=== PATIENT | female | born 1940 | race Asian ===

== ENCOUNTER → 2017-07-16 11:47 | Outpatient (CLI) | payer MEDICARE, OTHER, SELFPAY ==
[2017-07-16 14:21] LABS: Free T3, Triiodothyronine Free 4.33 pg/mL (2.77-5.27); Free T4, Direct Thyroxine 0.77 ng/dL (0.78-2.19)
[2017-07-16 14:34] LABS: Thyroid Stimulating Hormone 3.95 uIU/mL (0.47-4.68)
== END ==
PROVIDERS: PCP Physician Assistant; Visit Provider Family Medicine
DX: E03.9 Hypothyroidism, unspecified (principal)
CPT/HCPCS: 36415; 84439; 84443; 84481

== ENCOUNTER → 2017-09-23 11:13 | Outpatient (CLI) | payer MEDICARE, OTHER, SELFPAY ==
[2017-09-23 12:18] LABS: Add Manual Diff / Slide Review NO; Basophils Percent Auto 0.7 % (0-2); Eosinophils Percent Auto 1.7 % (2-4); Hematocrit 38.8 % (36-46); Hemoglobin 13.3 g/dL (12.0-16.0); Lymphocytes Percent Auto 32.2 % (25-40); Mean Corpuscular HGB Conc 34.2 % (30-36); Mean Corpuscular Hemoglobin 32.4 PG (26-34); Mean Corpuscular Volume 94.7 fL (80-100); Monocytes Percent Auto 6.5 % (3-14); Neutrophils Absolute Auto 3300 /uL (3000-5900); Neutrophils Percent Auto 58.9 % (50-75); Platelet Count 214 X10^3/uL (150-400); Red Cell Distribution Width 12.8 % (11.6-14.8); White Blood Cell Count 5.6 X10^3/uL (4.5-11.0)
[2017-09-23 12:21] LABS: Alanine Aminotransferase 29 IU/L (9-52); Albumin 4.2 g/dL (3.5-5.0); Albumin Globulin Ratio 1.6 (1.0-2.8); Alkaline Phosphatase 52 U/L (38-126); Aspartate Aminotransferase 29 IU/L (14-36); Bilirubin Total 0.3 mg/dL (0.2-1.3); Blood Urea Nitrogen 13 mg/dL (7-17); Carbon Dioxide 31 mmol/L (22-32); Chloride 103 mmol/L (98-107); Estimated Glomerular Filt Rate > 60.0 mL/min (>60); Globulin 2.6 g/dL (1.7-4.1); Glucose 112 mg/dL (80-110); HEMOLYSIS < 15 (0-50); Potassium 4.5 mmol/L (3.4-5.1); Sodium 141 mmol/L (137-145); Total Protein 6.8 g/dL (6.3-8.2)
[2017-09-23 17:30] LABS: Free T3, Triiodothyronine Free 3.54 pg/mL (2.77-5.27); Free T4, Direct Thyroxine 1.69 ng/dL (0.78-2.19)
[2017-09-23 17:43] LABS: Thyroid Stimulating Hormone 0.06 uIU/mL (0.47-4.68)
== END ==
PROVIDERS: PCP Physician Assistant; Visit Provider Physician Assistant
DX: R53.83 Other fatigue (principal); E03.9 Hypothyroidism, unspecified
CPT/HCPCS: 36415; 80053; 84439; 84443; 84481; 85025

== ENCOUNTER → 2017-11-03 09:37 | Outpatient (CLI) | payer MEDICARE, OTHER, SELFPAY ==
[2017-11-03 10:56] LABS: Thyroid Stimulating Hormone 2.73 uIU/mL (0.47-4.68)
== END ==
PROVIDERS: PCP Physician Assistant; Visit Provider Physician Assistant
DX: E03.9 Hypothyroidism, unspecified (principal)
CPT/HCPCS: 36415; 84443

== ENCOUNTER 2018-03-23 08:38 | Day surgery (SDC) | payer MEDICARE, OTHER, SELFPAY ==
[2018-03-23] VITALS (11 sets, daily range): BP systolic 108–163; BP diastolic 54–87; PULSE 60–76; RESP 4–20; TEMP 36.2–36.6; O2SAT 96–100; BMI 19.9
--- NOTE | 2018-03-23 | PATH_ITS ---
[facility] Accession Number: [id number] . 01 Material submitted: . SUBMUCOSAL MASS AT 15CM . 02 Diagnosis: Colon, Submucosal Mass at 15 cm, Biopsies: Colonic mucosa with no diagnostic abnormality. Negative for serrated lesion, dysplasia or malignancy. MRV/03/24/2018 . 02 Comment: The endoscopic impression of a submucosal mass is noted; however, there is no submucosal tissue present for evaluation in these mucosal biopsies. . 02 Electronically signed: . El Emerson MD, PhD, Pathologist NPI- [id number] . 01 Gross description: . Received one formalin-filled container labeled with the patient's name and labeled submucosal mass at 15 cm. The specimen consists of two 0.1-0.4 cm portions of tissue, entirely submitted in one cassette. ([id number]) /FRR . 02 Pathologist provided ICD-10: D12.6 . 02 CPT . 864195 Performed at: 01 [facility] [address], [place], [place] [id number] MD Yuri Fulton MD Phone: [phone] Performed at: 02 [facility] [address] [place], [place] [id number] MD Magaly Morocho MD Phone: [phone]
[2018-03-23] MEDS: SODIUM CHLORIDE 0.9% 1,000 ML 200 ML IV ×2 (09:12→13:01)
--- NOTE | 2018-03-23 11:18 | PM.HP.1 ---
History of Present Illness Date Patient Seen: 03/23/18 Time Patient Seen: 11:10 Chief complaint: [id number] Colonscopy Narrative: Patient is a woman here for screening colonoscopy. Last exam was 5 years ago. She has had numerous exams with multiple polyps removed in the past. Patient History Medical History Hypothyroidism (Chronic 08/12/10) Primary central sleep apnea (Chronic 04/07/12) Mitral valve prolapse (Chronic) household members: none Smoking Status: Never smoker second hand exposure: Yes (as a child. Both of my parents smoked) alcohol intake: current (red wine maybe twice a month.) substance use type: does not use Family & Social History Social History: household members none Tobacco & Substance use: Smoking Status Never smoker alcohol intake current Meds Home Medications Medication Instructions Recorded Confirmed Type AMYLASE/LIPASE/PROTEASE 1 ctb PO BID #0 04/07/12 01/19/18 History (#DIGESTIVE ENZYMES 19 MG-27.5 MG-5 MG) levalbuterol tartrate [Xopenex HFA] 2 puff INH Q6H PRN #1 inh 05/29/17 01/19/18 Rx B infantis-B longum-L acid-L cap PO BEDTIME cap 08/20/17 01/19/18 History rhamnosus 2 billion cell sprinkle capsule [CO-Q-10] 100 mg PO QDAY #0 08/20/17 01/19/18 History fluticasone 220 mcg/actuation HFA 1 puff INHALATION BID PRN inh 08/20/17 01/19/18 History aerosol inhaler sffemzriizxe-okofofpe-cafuny tablet 1 tab PO DAILY 08/20/17 01/19/18 History Magnesium Citrate See Label Instructions .ROUTE 11/04/17 01/19/18 History .COMPLEX [place] 3 See Label Instructions .ROUTE 11/04/17 01/19/18 History .COMPLEX Turmeric See Label Instructions .ROUTE 11/04/17 01/19/18 History .COMPLEX estradiol 0.01% (0.1 mg/gram) See Label Instructions VAG QWEEK 11/04/17 01/19/18 Rx vaginal cream #42.5 gram levothyroxine 50 mcg tablet 50 mcg PO DAILY #90 tab 11/04/17 03/23/18 Rx varicella-zoster glycoE vacc-AS01B 50 mcg IM ONCE #1 each 11/04/17 01/19/18 Rx adj(PF) 50 mcg/0.5 mL IM susp, kit tretinoin 0.05 % topical cream 0.05 % TOPICAL HS #60 gm 01/19/18 Rx Allergies Allergy/AdvReac Type Severity Reaction Status Date / Time morphine [MORPHINE] Allergy Severe HIVES AND Verified 03/23/18 09:10 ITCHING INTERNALLY povidone-iodine Allergy Severe RASH, Verified 03/23/18 09:10 [POVIDONE-IODINE] SWELLING shellfish derived Allergy Severe (ONLY Verified 03/23/18 09:10 [SHELLFISH DERIVED] OYSTERS/SCALLOPS/CLAMS) ITCHING,HIVES,SALIVATING,VOMIT zolpidem [ZOLPIDEM] Allergy Severe EXTREME Verified 03/23/18 09:10 PRUITIS montelukast [MONTELUKAST] AdvReac Severe NIGHTMARES Verified 03/23/18 09:10 AND TACHYCARDIA NSAIDS (Non-Steroidal AdvReac Severe Elevation Verified 03/23/18 09:10 Anti-Inflamma of [NSAIDS (NON-STEROIDAL systolic BP ANTI-INFLAMMA] fexofenadine [FEXOFENADINE] AdvReac Intermediate (THALIA) Verified 03/23/18 09:10 MADE ME HYPER. 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 Lungs are clear no rales rhonchi heart regular rate and rhythm. no murmur or gallop. abdomen is soft nontender without mass. Alert and oriented x3. Assessment & Plan Plan: Assessment/Plan Narrative: Screening colonoscopy. I have discussed the procedure and the rationale with the patient including risks of bleeding, perforation which would necessitate a major operation, failure to find remove all lesions and the potential to tattoo. They appeared to understand and wished to proceed.
--- NOTE | 2018-03-23 11:20 | PM.PREOP ---
Pre-operative Note Interval Note History & Physical reviewed/Exam performed by Physician: Yes Changes to H&P: No ASA Class (for procedural sedation): II
[2018-03-23] MEDS: ONDANSETRON 4 MG/2 ML INJ IV ×2 (11:28→12:43)
[2018-03-23] MEDS: SCOPOLAMINE 1 PATCH TOP (11:28)
[2018-03-23] MEDS: fentaNYL 250 MCG/5 ML INJ IV (11:29)
[2018-03-23] MEDS: MIDAZOLAM 5 MG/5 ML VIAL IV (11:29)
--- NOTE | 2018-03-23 12:10 | PM.OP.ENDO ---
Operative Date/Time/Diagnoses Date of procedure: 03/23/18 Time of procedure: 12:10 Pre-op diagnosis: Screening. History of polyps. Last exam 5 years ago. Post-op diagnosis: same Procedure & Clinicians Study performed: Colonoscopy Same procedure as scheduled: Yes Indications: Screening Surgeon: Amandeep Bustillo Procedure Notes SCOAP/Timeout: Performed Procedure in detail: The patient was placed in the left lateral decubitus position and underwent IV sedation directed by the surgeon consisting of fentanyl and Versed. Digital exam was unremarkable. The scope was inserted and advanced through the rectum into the sigmoid, descending, transverse, and ascending colon. Patient was noted to have diverticulosis.. The cecum was reached identified by the ileocecal valve and the appendiceal opening. The scope was gradually brought out. No Polyps were found. There was a submucosal mass noted at 15 cm from the anal verge. This had the appearance and biopsy characteristics of a lipoma. Once I removed the surface mucosa there was obvious fat underneath it. The scope ultimately was retroflexed in the rectum. The appearance was normal. The scope was removed and the patient tolerated the procedure well. Good prep Scope withdrawal time: 8.75 min Sedation minutes: 21 Findings: diverticulosis and other findings (Submucosal mass that appeared to be a lipoma in the rectum) Specimen(s): other (Submucosal mass 15 cm) Complications: none Recommendations: Colonscopy in 5 years Follow up: as needed Disposition: PACU
[2018-03-23] MEDS: METOCLOPRAMIDE 10 MG/2 ML INJ IV (14:40)
== END 2018-03-23 15:21 | disposition home or self-care (01) ==
LOC: ENDO 08:40
PROVIDERS: PCP Physician Assistant; Visit Provider Specialist
PROC: 0DJD8ZZ Inspection of Lower Intestinal Tract, Via Natural or Artificial Opening Endoscopic (ICD-10-PCS; CPT 45378; principal; 2018-03-23 10:45)
DX: Z86.010 Personal history of colon polyps (principal); K57.30 Diverticulosis of large intestine without perforation or abscess without bleeding; D12.6 Benign neoplasm of colon, unspecified; E03.9 Hypothyroidism, unspecified; G47.31 Primary central sleep apnea; I34.1 Nonrheumatic mitral (valve) prolapse
CPT/HCPCS: 45380; 88305; 99152; J2250; J2405; J2765; J3010

== ENCOUNTER → 2018-10-27 10:23 | Outpatient (CLI) | payer MEDICARE, OTHER, SELFPAY ==
[2018-10-27 11:39] LABS: Thyroid Stimulating Hormone 1.98 uIU/mL (0.47-4.68)
== END ==
PROVIDERS: PCP Physician Assistant; Visit Provider Physician Assistant
DX: E03.9 Hypothyroidism, unspecified (principal)
CPT/HCPCS: 36415; 84443

== ENCOUNTER → 2019-04-09 08:58 | Outpatient (CLI) | payer MEDICARE, OTHER, SELFPAY ==
--- NOTE | 2019-04-09 09:05 | DI.MG.S_ITS ---
BILATERAL DIGITAL SCREENING MAMMOGRAM 3D/2D WITH CAD: 04/09/2019 CLINICAL: Routine screening. Personal history of left breast cancer. Family history of breast cancer. Comparison is made to exams dated: 01/28/2018 mammogram, 01/05/2017 mammogram, and 01/08/2016 mammogram - [facility]. The tissue of both breasts is extremely dense, which lowers the sensitivity of mammography. Current study was also evaluated with a Computer Aided Detection (CAD) system. There are benign calcifications in both breasts. There also are benign post operative findings in the left breast. No significant masses, calcifications, or other findings are seen in either breast. There has been no significant interval change. IMPRESSION: There is no mammographic evidence of malignancy. A 1 year screening mammogram is recommended. This exam was interpreted at Station ID: [id number]. NOTE: For mammograms, a report in lay terms will be sent to the patient. Approximately 15% of breast malignancies will not be visualized mammographically. In the management of a palpable breast mass, a negative mammogram must not discourage biopsy of a clinically suspicious lesion. Electronically Signed By: Wellington pimentel/gisel:04/11/2019 08:10:32 letter sent: Normal Exam ACR BI-RADS Category 2: Benign Finding(s) 3342F
[2019-04-09 10:03] LABS: Add Manual Diff / Slide Review NO; Basophils Absolute Auto 0 /uL (0-100); Basophils Percent Auto 0.5 % (0-2); Eosinophils Absolute Auto 0 /uL (0-450); Eosinophils Percent Auto 0.4 % (2-4); Hematocrit 42.6 % (36-46); Hemoglobin 14.5 g/dL (12.0-16.0); Lymphocytes Absolute Auto 1500 /uL (1100-4500); Mean Corpuscular HGB Conc 34.1 % (30-36); Mean Corpuscular Hemoglobin 32.5 PG (26-34); Mean Corpuscular Volume 95.3 fL (80-100); Monocytes Absolute Auto 300 /uL (0-900); Monocytes Percent Auto 4.1 % (3-14); Neutrophils Absolute Auto 4800 /uL (1500-7000); Platelet Count 245 X10^3/uL (150-400); Red Blood Cell Count 4.47 X10^6/uL (4.0-5.2); Red Cell Distribution Width 12.7 % (11.6-14.8); White Blood Cell Count 6.7 X10^3/uL (4.5-11.0)
[2019-04-09 10:19] LABS: Alanine Aminotransferase 22 IU/L (<35); Albumin Globulin Ratio 1.5 (1.0-2.8); Alkaline Phosphatase 61 U/L (38-126); Aspartate Aminotransferase 31 IU/L (14-36); Bilirubin Total 0.6 mg/dL (0.2-1.3); Blood Urea Nitrogen 18 mg/dL (7-17); Carbon Dioxide 27 mmol/L (22-32); Chloride 104 mmol/L (98-107); Cholesterol 249 mg/dL (140-199); Estimated Glomerular Filt Rate > 60.0 mL/min (>60); Globulin 3.4 g/dL (1.7-4.1); Glucose 116 mg/dL (80-110); HDL Cholesterol 84 mg/dL (40-60); HEMOLYSIS < 15 (0-50); LDL Cholesterol Calculated 151 mg/dL (<100); Potassium 3.7 mmol/L (3.4-5.1); Sodium 141 mmol/L (137-145); Total Protein 8.4 g/dL (6.3-8.2); Triglycerides 68 mg/dL (35-150)
[2019-04-09 10:59] LABS: Thyroid Stimulating Hormone 2.72 uIU/mL (0.47-4.68)
[2019-04-09 11:06] LABS: Vitamin B12 903 pg/mL (239-931)
== END ==
PROVIDERS: PCP Physician Assistant; Referring Provider Physician Assistant; Visit Provider Physician Assistant
DX: Z12.31 Encounter for screening mammogram for malignant neoplasm of breast (principal); Z85.3 Personal history of malignant neoplasm of breast; Z80.3 Family history of malignant neoplasm of breast; Z13.220 Encounter for screening for lipoid disorders; Z13.6 Encounter for screening for cardiovascular disorders; R53.83 Other fatigue; E03.9 Hypothyroidism, unspecified; I34.1 Nonrheumatic mitral (valve) prolapse; M85.80 Other specified disorders of bone density and structure, unspecified site; R73.01 Impaired fasting glucose
CPT/HCPCS: 36415; 77063; 77067; 80053; 80061; 82306; 82607; 83036; 84443; 85025

== ENCOUNTER → 2019-06-17 11:02 | Outpatient (CLI) | payer MEDICARE, OTHER, SELFPAY ==
[2019-06-17 12:47] LABS: Creatinine Urine Random 15.2 mg/dL
[2019-06-17 12:52] LABS: Microalbumi Creatinin Ratio Ur 39.4 ug/mg CR (<30); Microalbumin Urine Random 0.6 mg/dL (0-1.6)
== END ==
PROVIDERS: PCP Student in an Organized Health Care Education/Training Program; Referring Provider Student in an Organized Health Care Education/Training Program; Visit Provider Student in an Organized Health Care Education/Training Program
DX: E46 Unspecified protein-calorie malnutrition (principal)
CPT/HCPCS: 82043; 82570

== ENCOUNTER → 2019-08-05 12:24 | Outpatient (CLI) | payer MEDICARE, OTHER, SELFPAY | PROVIDERS: PCP Student in an Organized Health Care Education/Training Program; Referring Provider Student in an Organized Health Care Education/Training Program; Visit Provider Student in an Organized Health Care Education/Training Program | DX: Z13.820 Encounter for screening for osteoporosis (principal); M85.88 Other specified disorders of bone density and structure, other site; Z78.0 Asymptomatic menopausal state; E07.9 Disorder of thyroid, unspecified; Z85.3 Personal history of malignant neoplasm of breast; Z85.42 Personal history of malignant neoplasm of other parts of uterus; Z91.89 Other specified personal risk factors, not elsewhere classified | CPT/HCPCS: 77080 ==

== ENCOUNTER → 2019-09-22 10:04 | Outpatient (CLI) | payer MEDICARE, OTHER, SELFPAY ==
[2019-09-22 10:16] LABS: RBC Urine None Seen (0-5/HPF); WBC Urine None Seen (0-5/HPF)
[2019-09-22 11:20] LABS: Appearance Urine UA CLEAR; Bilirubin Urine UA NEGATIVE (NEGATIVE); Color Urine UA YELLOW; Glucose Urine UA NEGATIVE (Negative); Ketones Urine UA NEGATIVE (NEGATIVE); Leukocyte Esterase Urine UA NEGATIVE (NEGATIVE); Nitrite Urine UA NEGATIVE (Negative); Occult Blood Urine UA TRACE-INTACT (Negative); Protein Urine UA NEGATIVE (Negative); Specific Gravity Urine UA <=1.005 (1.000-1.035); Urobilinogen Urine UA 0.2 E.U./dL (0.2)
[2019-09-22 12:05] LABS: Bacteria Urine Occasional (0-1); Culture Indicated Urine Cult Not Indicated
== END ==
PROVIDERS: PCP Student in an Organized Health Care Education/Training Program; Referring Provider Student in an Organized Health Care Education/Training Program; Visit Provider Student in an Organized Health Care Education/Training Program
DX: R30.0 Dysuria (principal)
CPT/HCPCS: 81001

== ENCOUNTER → 2019-10-06 08:49 | Outpatient (CLI) | payer MEDICARE, OTHER, SELFPAY ==
--- NOTE | 2019-10-06 08:55 | DIET.PN ---
Dietary Progress Note Assessment: 79y [place] F referred to nutrition for being underweight with preDM, HLD, HTN, osteopenia, celiac disease and lactose-intolerance. Pt is experiencing stress from global pandemic in addition to a big crossroads in her life of aging, needing to sell home which is becoming too much work for her, and looking at relocating to be nearer her children in [place]. Pt tends to deal with stress using activity (walking, gardening) and journalling. Pt is a go getter and feels guilty taking a nap during the day or being inactive. Pt has tried eating more to gain weight but feels stuffed and uncomfortable. 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 Daily for BP (nitric acid) pistachios, arugula, beets sometimes, 2 stalks celery BP 125/70 Pt has arthritis and found many beans aggravate sx but can tolerate: small red beans, lentils, great northern, split peas Pt takes MVI, probiotic, 1g tumeric and 500mg Magnesium Citrate daily Pt has very high activity level (brisk walking 3.5mi/d, yoga, jsutine chi, sits on medicine ball using hand weights or exercise bands if watching tv, 5+hr gardening daily) which in addition to very clean diet and higher healthy fat diet (nuts, seeds) means a smaller amount of food is satisfying her for longer and her activity is burning many calories in the average day. Labs: A1c 6.0 H, TC 249 H, HDL 84 H, LDL 151 H Nutrition Diagnosis: underweight r/t burning more calories that she takes in aeb pt is extremely active and eats unrefined diet high in vegetables and healthy fats which causes lower total calorie diet c high satiety and high caloric output, BMI 18.9, pt has tried eating more but gets uncomfortable and has not seen weight gain. Interventions: 1. Discussed pt's energy balance, to allow more sedentary time by sitting in comfortable chair for an afternoon nap or tv session daily, to also take one day per week off from intensive exercise. Additionally pt will try to incorporate small snack midmorning and midafternoon. 2. Discussed increasing soluble fiber to manage high LDL cholesterol, pt will incorporate lentils and tolerable beans into food routine. Pt has low carbohydrate diet, this will increase healthy carbs in her diet, too. 3. Discussed osteopenia, provided handout on calcium content of food. Pt is lactose intolerant so does not consume dairy (besides heavy cream and butter which do not contain lactose), pt to use handout to approximate calcium intake daily and aim for 1g/d between food forms and supplements. 4. Discussed preDM and how this is common c individuals who are GF as gluten is a protein and many GF products are high sugar. Encouraged pt to avoid GF products and instead eat non-gluten foods with a balance of fat, carbs, and protein. Monitoring/Evaluations: Pt instructed to call if weight continues to drop or is not seeing increase in weight in 3mo for more intensive intervention.
== END ==
PROVIDERS: PCP Student in an Organized Health Care Education/Training Program; Referring Provider Student in an Organized Health Care Education/Training Program; Visit Provider Student in an Organized Health Care Education/Training Program
DX: R63.6 Underweight (principal); R73.03 Prediabetes; E78.5 Hyperlipidemia, unspecified; I10 Essential (primary) hypertension; K90.0 Celiac disease; E73.9 Lactose intolerance, unspecified; Z68.1 Body mass index [BMI] 19.9 or less, adult; Z71.3 Dietary counseling and surveillance
CPT/HCPCS: 97802

== ENCOUNTER → 2020-04-18 10:17 | Outpatient (CLI) | payer MEDICARE, OTHER, SELFPAY ==
--- NOTE | 2020-04-18 10:19 | DI.MG.S_ITS ---
BILATERAL DIGITAL SCREENING MAMMOGRAM 3D/2D WITH CAD POST LUMPECTOMY: 04/18/2020 CLINICAL: Routine screening. Personal history of left breast cancer. Comparison is made to exams dated: 04/09/2019 mammogram - [facility], 01/28/2018 mammogram, and 01/05/2017 mammogram - [facility]. The tissue of both breasts is extremely dense, which lowers the sensitivity of mammography. Current study was also evaluated with a Computer Aided Detection (CAD) system. There are benign calcifications in both breasts. There also are benign post operative findings in the left breast. No significant masses, calcifications, or other findings are seen in either breast. There has been no significant interval change. IMPRESSION: BENIGN There is no mammographic evidence of malignancy. A 1 year screening mammogram is recommended. This exam was interpreted at Station ID: [id number]. NOTE: For mammograms, a report in lay terms will be sent to the patient. Approximately 15% of breast malignancies will not be visualized mammographically. In the management of a palpable breast mass, a negative mammogram must not discourage biopsy of a clinically suspicious lesion. Electronically Signed By: Muriel gonsalves/gisel:04/18/2020 13:07:48 copy to: MD Katie Espinosa, [facility], ph: [phone], fax: [phone] letter sent: Normal Exam ACR BI-RADS Category 2: Benign Finding(s) 3342F
== END ==
PROVIDERS: PCP Student in an Organized Health Care Education/Training Program; Referring Provider Student in an Organized Health Care Education/Training Program; Visit Provider Student in an Organized Health Care Education/Training Program
DX: Z12.31 Encounter for screening mammogram for malignant neoplasm of breast (principal); Z85.3 Personal history of malignant neoplasm of breast
CPT/HCPCS: 77063; 77067

== ENCOUNTER → 2020-07-18 10:34 | Outpatient (CLI) | payer MEDICARE, OTHER, SELFPAY ==
[2020-07-18 11:01] LABS: RBC Urine None Seen (0-5/HPF)
[2020-07-18 11:51] LABS: Add Manual Diff / Slide Review NO; Basophils Absolute Auto 0 /uL (0-100); Basophils Percent Auto 0.6 % (0-2); Eosinophils Absolute Auto 0 /uL (0-450); Eosinophils Percent Auto 0.3 % (2-4); Hematocrit 38.8 % (36-46); Hemoglobin 13.1 g/dL (12.0-16.0); Lymphocytes Absolute Auto 1500 /uL (1100-4500); Lymphocytes Percent Auto 23.2 % (25-40); Mean Corpuscular HGB Conc 33.7 % (30-36); Mean Corpuscular Hemoglobin 31.8 PG (26-34); Mean Corpuscular Volume 94.4 fL (80-100); Monocytes Absolute Auto 300 /uL (0-900); Neutrophils Absolute Auto 4700 /uL (1500-7000); Neutrophils Percent Auto 70.9 % (50-75); Platelet Count 244 X10^3/uL (150-400); Red Blood Cell Count 4.11 X10^6/uL (4.0-5.2); Red Cell Distribution Width 13.1 % (11.6-14.8); White Blood Cell Count 6.7 X10^3/uL (4.5-11.0)
[2020-07-18 12:15] LABS: Alanine Aminotransferase 17 IU/L (<35); Albumin Globulin Ratio 1.2 (1.0-2.8); Alkaline Phosphatase 81 U/L (38-126); Aspartate Aminotransferase 36 IU/L (14-36); BUN Creatinine Ratio 22.4 (6-22); Bilirubin Total 0.5 mg/dL (0.2-1.3); Blood Urea Nitrogen 11 mg/dL (7-17); Calcium 9.2 mg/dL (8.4-10.2); Carbon Dioxide 28 mmol/L (22-32); Chloride 106 mmol/L (98-107); Cholesterol 207 mg/dL (140-199); Estimated Glomerular Filt Rate > 60.0 mL/min (>60); Globulin 3.3 g/dL (1.7-4.1); Glucose 123 mg/dL (80-110); HDL Cholesterol 67 mg/dL (40-60); HEMOLYSIS < 15 (0-50); LDL Cholesterol Calculated 120 mg/dL (<100); Potassium 3.8 mmol/L (3.4-5.1); Sodium 138 mmol/L (137-145); Total Protein 7.3 g/dL (6.3-8.2); Triglycerides 100 mg/dL (35-150)
[2020-07-18 12:38] LABS: Appearance Urine UA CLEAR; Bilirubin Urine UA NEGATIVE (NEGATIVE); Color Urine UA YELLOW; Glucose Urine UA NEGATIVE (Negative); Ketones Urine UA NEGATIVE (NEGATIVE); Leukocyte Esterase Urine UA NEGATIVE (NEGATIVE); Nitrite Urine UA NEGATIVE (Negative); Occult Blood Urine UA TRACE-LYSED (Negative); Protein Urine UA NEGATIVE (Negative); Urobilinogen Urine UA 0.2 E.U./dL (0.2)
[2020-07-18 12:53] LABS: TSH w/ Reflex to FT4 1.77 uIU/mL (0.47-4.68)
[2020-07-18 13:04] LABS: Vitamin B12 947 pg/mL (239-931)
[2020-07-18 13:30] LABS: Bacteria Urine Few (2-10); Culture Indicated Urine Cult Not Indicated; WBC Urine 0-1/HPF (0-5/HPF); pH Urine UA 7.5 (4.5-8.0)
== END ==
PROVIDERS: PCP Family Medicine; Referring Provider Family Medicine; Visit Provider Family Medicine
DX: Z00.00 Encounter for general adult medical examination without abnormal findings (principal); E03.9 Hypothyroidism, unspecified; E78.5 Hyperlipidemia, unspecified; R41.3 Other amnesia; R73.03 Prediabetes
CPT/HCPCS: 36415; 80053; 80061; 81001; 82607; 84443; 85025

== ENCOUNTER → 2020-10-05 16:22 | Outpatient (CLI) | payer MEDICARE, OTHER, SELFPAY ==
--- NOTE | 2020-10-05 17:00 | DI.MRI.S_ITS ---
PROCEDURE: MR HEAD/BRAIN WO/W CON INDICATIONS: memory loss and prior CA TECHNIQUE: Noncontrast axial T1 spin echo, axial T2 fast spin echo, sagittal and axial FLAIR, coronal T2 fast spin echo, axial gradient echo, axial diffusion and ADC through the brain. After the administration of contrast, axial and coronal T1 spin echo with fat saturation through the brain. COMPARISON: None. FINDINGS: Image quality: Diagnostic, with note made of motion artifact. CSF spaces: Basal cisterns are patent. No extra-axial fluid collections. Ventricles are normal in size and shape. Brain: No midline shift. No intracranial bleeds or masses. No abnormal intracranial enhancement. There is cerebral volume loss for age. There is periventricular white matter chronic small vessel ischemic change. The brainstem appears normal. Diffusion-weighted images demonstrate no acute ischemic insults. No chronic ischemic insults. Normal intravascular flow voids are present. Skull and face: Calvarial marrow is normal in signal. Orbits appear normal. Note is made of bilateral lens replacements. Sinuses: Sinuses and mastoids appear clear. A right-sided lissa bullosa is incidentally noted. Mild leftward nasal septal deviation is incidentally noted. IMPRESSION: No imaging explanation is found for this patient's presenting symptoms. Note is made of age-appropriate brain parenchymal volume loss and chronic small vessel ischemic changes. No findings of acute or subacute infarction can be seen. No masses or abnormal enhancement can be seen. Dictated by: Angelo Valle M.D. on 10/05/2020 at 16:57 Approved by: Angelo Valle M.D. on 10/05/2020 at 16:59
== END ==
PROVIDERS: PCP Family Medicine; Referring Provider Family Medicine; Visit Provider Family Medicine
DX: R41.3 Other amnesia (principal); Z85.42 Personal history of malignant neoplasm of other parts of uterus; Z90.710 Acquired absence of both cervix and uterus
CPT/HCPCS: 70553; A9579

== ENCOUNTER → 2021-06-13 11:14 | Outpatient (CLI) | payer MEDICARE, OTHER, SELFPAY ==
--- NOTE | 2021-06-13 | DI.MG.S_ITS ---
BILATERAL DIGITAL SCREENING MAMMOGRAM 3D/2D WITH CAD: 06/13/2021 CLINICAL: Routine screening. Personal history of left breast cancer. Comparison is made to exams dated: 04/18/2020 mammogram, 04/09/2019 mammogram - [facility], and 01/28/2018 mammogram - [facility]. The tissue of both breasts is extremely dense, which lowers the sensitivity of mammography. Current study was also evaluated with a Computer Aided Detection (CAD) system. There are benign calcifications in both breasts. There also are benign post operative findings in the left breast. No significant masses, calcifications, or other findings are seen in either breast. There has been no significant interval change. IMPRESSION: BENIGN There is no mammographic evidence of malignancy. A 1 year screening mammogram is recommended. This exam was interpreted at Station ID: [id number]. NOTE: For mammograms, a report in lay terms will be sent to the patient. Approximately 15% of breast malignancies will not be visualized mammographically. In the management of a palpable breast mass, a negative mammogram must not discourage biopsy of a clinically suspicious lesion. Electronically Signed By: True Villareal M.D., jr/gisel:06/13/2021 11:54:53 copy to: MD Katie Espinosa, [facility], ph: [phone], fax: [phone] letter sent: Normal Exam ACR BI-RADS Category 2: Benign Finding(s) 3342F
== END ==
PROVIDERS: PCP Family Medicine; Referring Provider Family Medicine; Visit Provider Family Medicine
DX: Z12.31 Encounter for screening mammogram for malignant neoplasm of breast (principal); Z85.3 Personal history of malignant neoplasm of breast
CPT/HCPCS: 77063; 77067

== ENCOUNTER → 2022-11-07 12:46 | Outpatient (CLI) | payer MEDICARE, OTHER, SELFPAY ==
[2022-11-07 13:12] LABS: Add Manual Diff / Slide Review NO; Basophils Absolute Auto 100 /uL (0-100); Basophils Percent Auto 0.7 % (0-2); Eosinophils Absolute Auto 0 /uL (0-450); Eosinophils Percent Auto 0.5 % (2-4); Hematocrit 38.6 % (36-46); Hemoglobin 13.5 g/dL (12.0-16.0); Lymphocytes Absolute Auto 2700 /uL (1100-4500); Lymphocytes Percent Auto 35.9 % (25-40); Mean Corpuscular Hemoglobin 32.1 PG (26-34); Mean Corpuscular Volume 91.5 fL (80-100); Monocytes Absolute Auto 500 /uL (0-900); Monocytes Percent Auto 6.5 % (3-14); Neutrophils Absolute Auto 4200 /uL (1500-7000); Neutrophils Percent Auto 56.4 % (50-75); Platelet Count 241 X10^3/uL (150-400); Red Blood Cell Count 4.22 X10^6/uL (4.0-5.2); Red Cell Distribution Width 12.6 % (11.6-14.8); White Blood Cell Count 7.5 X10^3/uL (4.5-11.0)
[2022-11-07 13:33] LABS: Alanine Aminotransferase 32 IU/L (<35); Albumin 4.4 g/dL (3.5-5.0); Albumin Globulin Ratio 1.5 (1.0-2.8); Alkaline Phosphatase 72 U/L (38-126); Aspartate Aminotransferase 30 IU/L (14-36); BUN Creatinine Ratio 19.3 (6-22); Bilirubin Total 0.9 mg/dL (0.2-1.3); Blood Urea Nitrogen 11 mg/dL (7-17); Calcium 9.6 mg/dL (8.4-10.2); Carbon Dioxide 24 mmol/L (22-32); Chloride 106 mmol/L (98-107); Cholesterol 283 mg/dL (140-199); Estimated Glomerular Filt Rate > 60 mL/min (>60); Globulin 2.9 g/dL (1.7-4.1); Glucose 108 mg/dL (80-110); HDL Cholesterol 60 mg/dL (40-60); HEMOLYSIS < 15 (0-50); LDL Cholesterol Calculated 192 mg/dL (<100); Potassium 3.8 mmol/L (3.4-5.1); Sodium 138 mmol/L (137-145); Total Protein 7.3 g/dL (6.3-8.2); Triglycerides 157 mg/dL (35-150)
== END ==
PROVIDERS: PCP Family Medicine; Referring Provider Family Medicine; Visit Provider Family Medicine
DX: E03.9 Hypothyroidism, unspecified (principal); R73.03 Prediabetes; E78.5 Hyperlipidemia, unspecified; F03.B0 Unspecified dementia, moderate, without behavioral disturbance, psychotic disturbance, mood disturbance, and anxiety
CPT/HCPCS: 36415; 80053; 80061; 83036; 84443; 85025